=== PATIENT | female | born 1985 | race American Indian/Alaskan Native ===

== ENCOUNTER 2019-07-21 10:09 | Day surgery (SDC) | payer OTHER ==
[2019-07-21] MEDS ORDERED: ONDANSETRON 4 MG/2 ML INJ IV PRN (11:09)
[2019-07-21] MEDS ORDERED: fentaNYL 100 MCG/2 ML INJ IV PRN (11:09)
--- NOTE | 2019-07-21 11:10 | Anesthesia Day of Surgery ---
Anesthesia Day of Surgery - Day of Surgery Patient Examined: Yes Patient H&P Reviewed: Yes Patient is NPO: Yes
--- NOTE | 2019-07-21 11:14 | Anesthesia Consultation ---
Anesthesia Consult and Med Hx Date of service: 07/21/19 - Airway Anesthetic Teeth Evaluation: Good ROM Head & Neck: Adequate Mental/Hyoid Distance: Adequate Mallampati Class: Class II Intubation Access Assessment: Good - Pre-Operative Health Status ASA Pre-Surgery Classification: ASA1 Proposed Anesthetic Plan: General - Pulmonary Hx Smoking: Yes - Central Nervous System Hx Neuromuscular Disorder: Yes (Occasional Migraines) Hx Psychiatric Problems: No - Hematic Hx Sickle Cell Disease: No - Other Systems Hx Alcohol Use: Yes (Occas) Hx Cancer: No - Additional Comments Anesthesia Medical History Comments: +Medical Clearance
[2019-07-21] MEDS ORDERED: MIDAZOLAM 2 MG/2 ML INJ IV NR (12:00)
[2019-07-21] MEDS ORDERED: LACTATED RINGERS 1,000 ML IV SCH (12:00)
[2019-07-21] MEDS ORDERED: SILVER NITRATE APPLICATOR 1 EA TP ONE ×2 (12:18→13:35)
[2019-07-21] MEDS ORDERED: LIDOCAINE MPF (2%) 20 MG/1 ML VIAL 5 ML ONE (12:27)
[2019-07-21] MEDS ORDERED: MIDAZOLAM 2 MG/2 ML INJ ONE (12:27)
[2019-07-21] MEDS ORDERED: fentaNYL 100 MCG/2 ML INJ ONE (12:27)
[2019-07-21] MEDS ORDERED: PROPOFOL 200 MG/20 ML VIAL IV ONE (12:27)
[2019-07-21] MEDS ORDERED: GLYCOPYRROLATE 0.4 MG/2 ML INJ ONE (12:27)
[2019-07-21] MEDS ORDERED: FERRIC SUBSULFATE TOPICAL SOLN 8 ML TP ONE ×2 (13:43→13:44)
[2019-07-21] MEDS ORDERED: KETOROLAC 30 MG/1 ML INJ ONE (13:44)
[2019-07-21] MEDS ORDERED: SODIUM CHLORIDE 0.9% IRRIG SOLN 3000 ML IR ONE (13:50)
[2019-07-21] MEDS ORDERED: oxyCODONE /ACETAMINOPHEN 5-325MG TAB PO ONE (15:00)
[2019-07-21 15:33] LABS: Hematocrit 39.2 % (30.3-42.9); Hemoglobin 13.3 gm/dl (10.1-14.3); Mean Corpuscular HGB Conc 34 % (30-34); Mean Corpuscular Volume 96 fl (79-97); Platelet Count 183 K/mm3 (140-440); Red Blood Count 4.09 M/mm3 (3.65-5.03); Red Cell Distribution Width 15.7 % (13.2-15.2)
--- NOTE | 2019-07-21 15:43 | Operative Report ---
Operative Report Operative Report: Preoperative diagnosis: 1. Abnormal uterine bleeding. 2. Thickened endometrium. Postoperative diagnosis: same as preoperative diagnosis. Procedure: 1. Hysteroscopy. 2. D&C Surgeon: Dr. Oviedo Spray Pilot: none Anesthesia: General. EBL: minimal IVF: RL 1 liter Complications: none Procedure details: The risks, benefits, and alternatives of the procedure were discussed in detail with the patient which included but not limited to infection, hemorrhage requiring a, and uterine perforation. The patient expressed understanding, her questions answered, and she gave informed consent. The patient was taken to the operating room with an IVF infusing Ringer's lactate. In the operating room, she was placed in the dorsal supine position and given IV sedation with MAC. Then, she was placed on the stirrups in a dorsal lithotomy position. The perineum vagina and cervix were washed and she was prepared and draped in the usual sterile fashion. Examination under anesthesia revealed normal external genitalia and vagina. The cervix was closed, long, posterior with mild bleeding at the os. The uterus was enlarged to 9-wks week size, anteverted, mobile, the adnexae were nonpalpable. A weighted speculum was placed placed on the posterior vaginal wall. The anterior lip of the cervix was grasped with a single-tooth tenaculum. Endocervical curettage was done. The cervical os was dilated and the hysteroscope was introduced into the uterine cavity. It revealed thickened endometrial lining and a small submucosal myoma. The ostia were not visualized. The hysteroscope was removed from the uterine cavity. A gentle curettage was performed until a gritty texture was noticed. The specimen which consisted of ECC and EMC was sent to pathology. The instruments were removed from the cervix and vagina. The count of laps, needles, sponges, and instrument were correct 2. The patient tolerated the procedure well. She was awakened from the anesthesia and taken to the recovery room in a stable condition.
[2019-07-21 16:01] VITALS: BP 118/68
--- NOTE | 2019-07-21 20:35 | Post Anesthesia Evaluation ---
- Post Anesthesia Evaluation Patient Participated: Yes Airway Patent: Yes Stable Respiratory Function: Yes Nausea/Vomiting: No Temp > 96.8F: Yes Pain Manageable: Yes Adequeate Hydration: Yes Anesthesia Complications: No Block Receding Appropriately: Not Applicable Patient on Ventilator: No
== END 2019-07-21 10:10 | disposition home or self-care (01) ==
LOC: OR 10:09
PROVIDERS: ATTEND Obstetrics & Gynecology
DX: N93.9 Abnormal uterine and vaginal bleeding, unspecified (principal); R93.89 Abnormal findings on diagnostic imaging of other specified body structures; N85.8 Other specified noninflammatory disorders of uterus; F17.210 Nicotine dependence, cigarettes, uncomplicated; G43.909 Migraine, unspecified, not intractable, without status migrainosus; E78.00 Pure hypercholesterolemia, unspecified; Z88.0 Allergy status to penicillin; Z79.899 Other long term (current) drug therapy; Z72.89 Other problems related to lifestyle; Z98.890 Other specified postprocedural states
CPT/HCPCS: 36415; 58558; 81025; 85027; 88305; A4217; J1885; J2250; J2704; J3010; J7120